=== PATIENT | male | born 1985 | race Hispanic/Latino ===

== ENCOUNTER 2021-04-18 18:59 | Emergency (ER) | payer SELFPAY ==
[~2021-04-18] VITALS: Ht 170.2 cm; Wt 72.0 kg
[~2021-04-18 18:59] MED LIST: AMOXICILLIN500 MG PO; BIAXIN500 MG OR; LORTAB 5/3255 MG PO; NO MEDS
[2021-04-18] MEDS ORDERED: LORTAB 1010 MG PO (21:26)
[2021-04-18 21:35] VITALS: BP 149/81
== END 2021-04-18 21:35 | disposition home or self-care (01) | DRG 552 ==
LOC: ED 18:59
DX: S13.9XXA Sprain of joints and ligaments of unspecified parts of neck, initial encounter (principal); S52.612D Displaced fracture of left ulna styloid process, subsequent encounter for closed fracture with routine healing; W14.XXXA Fall from tree, initial encounter; Y93.H2 Activity, gardening and landscaping; Y92.007 Garden or yard of unspecified non-institutional (private) residence as the place of occurrence of the external cause; X58.XXXD Exposure to other specified factors, subsequent encounter

== ENCOUNTER 2022-04-24 10:07 | Emergency (ER) | payer SELFPAY ==
[~2022-04-24] VITALS: Ht 170.2 cm; Wt 72.7 kg
[~2022-04-24 10:07] MED LIST changes: +LORTAB 1010 MG PO
[2022-04-24 10:16] VITALS: BP 141/84
[2022-04-24 10:30] VITALS: BP 121/73
[2022-04-24] MEDS ORDERED: ZOFRAN4 MG/TAB PO ×2 (10:47→11:12)
[2022-04-24 11:00] VITALS: BP 117/75
[2022-04-24 11:17] VITALS: BP 117/75
== END 2022-04-24 11:23 | disposition home or self-care (01) | DRG 153 ==
LOC: ED 10:07
DX: J06.9 Acute upper respiratory infection, unspecified (principal); R11.2 Nausea with vomiting, unspecified